=== PATIENT | female | born 1970 | race American Indian/Alaskan Native ===

== ENCOUNTER 2020-05-21 08:23 | Emergency (ER) | payer SELFPAY ==
[2020-05-21 08:31] VITALS: BP 163/112
[2020-05-21 09:33] LABS: Basophils # (Auto) 0.1 K/mm3 (0.0-0.1); Basophils % (Auto) 2.4 % (0.0-1.8); Eosinophils # (Auto) 0.2 K/mm3 (0.0-0.4); Eosinophils % (Auto) 4.1 % (0.0-4.3); Hematocrit 41.2 % (30.3-42.9); Hemoglobin 13.9 gm/dl (10.1-14.3); Lymphocytes # (Auto) 1.6 K/mm3 (1.2-5.4); Mean Corpuscular HGB Conc 34 % (30-34); Mean Corpuscular Volume 88 fl (79-97); Monocytes # (Auto) 0.3 K/mm3 (0.0-0.8); Monocytes % (Auto) 7.6 % (0.0-7.3); Platelet Count 227 K/mm3 (140-440); Red Blood Count 4.69 M/mm3 (3.65-5.03); Red Cell Distribution Width 13.6 % (13.2-15.2)
[2020-05-21 09:45] LABS: Alanine Aminotransferase 17 units/L (7-56); Albumin 4.1 g/dL (3.9-5); BUN/Creatinine Ratio 13; Blood Urea Nitrogen 14 mg/dL (7-17); Calcium 9.2 mg/dL (8.4-10.2); Hemolysis Index 6
[2020-05-21 12:54] LABS: Bilirubin,Urine NEG (Negative); Blood,Urine NEG (Negative); Color,Urine Yellow (Yellow); Mucus,Urine FEW /HPF; Protein,Urine <15 mg/dL mg/dL (Negative); Urobilinogen,Urine < 2.0 mg/dL (<2.0)
--- NOTE | 2020-05-21 14:02 | Emergency Department Report ---
ED Abdominal Pain HPI - General Chief Complaint: Abdominal Pain Stated Complaint: ABD PAIN PUI?: No Time Seen by Provider: 05/21/20 13:09 Source: patient Mode of arrival: Ambulatory Limitations: No Limitations - History of Present Illness Initial Comments: Chief complaint: Abdominal pain, vaginal itching HPI this is a 50-year-old female with history of uterine fibroids who presents with lower periumbilical suprapubic abdominal pain crampy in nature. Mild to moderate in severity. Ibuprofen did not provide any relief. No fever. No vomiting. Patient has had vaginal itching for several days. No vaginal discharge. Patient does not have a PCP. Last menstrual cycle 5 to 6 months ago patient is perimenopausal. MD Complaint: abdominal pain -: Gradual, days(s) (2) Location: periumbilical, suprapubic Severity: mild, moderate Quality: cramping Consistency: intermittent Improves With: nothing Worsens With: nothing Associated Symptoms: other (Vaginal itching) - Related Data Previous Rx's Medication Instructions Recorded Last Taken Type Fluconazole [Diflucan TAB] 1 tab PO QDAY #1 tablet 05/21/20 Unknown Rx HYDROcodone/APAP 5-325 [[place] 1 each PO Q6H PRN #10 tablet 05/21/20 Unknown Rx 5/325] Ibuprofen [Motrin 800 MG tab] 1 tab PO Q8HR PRN #15 tablet 05/21/20 Unknown Rx metroNIDAZOLE [Flagyl TAB] 1 tab PO Q12HR 7 Days #14 tab 05/21/20 Unknown Rx Allergies Allergy/AdvReac Type Severity Reaction Status Date / Time No Known Allergies Allergy Unverified 04/07/18 11:15 ED Review of Systems ROS: Stated complaint: ABD PAIN Other details as noted in HPI Comment: All other systems reviewed and negative Constitutional: denies: fever, malaise Respiratory: denies: cough, shortness of breath Gastrointestinal: abdominal pain. denies: nausea, vomiting Genitourinary: denies: urgency, frequency, hematuria, discharge, abnormal mense s, dyspareunia Musculoskeletal: denies: as per HPI ED Past Medical Hx - Past Medical History Previous Medical History?: No - Surgical History Past Surgical History?: Yes Additional Surgical History: Tubal ligation - Social History Smoking Status: Light Tobacco Smoker Substance Use Type: Alcohol - Medications Home Medications: Home Medications Medication Instructions Recorded Confirmed Last Taken Type Fluconazole [Diflucan TAB] 1 tab PO QDAY #1 tablet 05/21/20 Unknown Rx HYDROcodone/APAP 5-325 [[place] 1 each PO Q6H PRN #10 tablet 05/21/20 Unknown Rx 5/325] Ibuprofen [Motrin 800 MG tab] 1 tab PO Q8HR PRN #15 tablet 05/21/20 Unknown Rx metroNIDAZOLE [Flagyl TAB] 1 tab PO Q12HR 7 Days #14 tab 05/21/20 Unknown Rx ED Physical Exam - General Limitations: No Limitations General appearance: alert, in no apparent distress - Head Head exam: Present: atraumatic, normocephalic - Eye Eye exam: Present: normal appearance - ENT ENT exam: Present: mucous membranes moist - Neck Neck exam: Present: normal inspection - Respiratory Respiratory exam: Present: normal lung sounds bilaterally. Absent: respiratory distress, wheezes, rales, rhonchi - Cardiovascular Cardiovascular Exam: Present: regular rate, normal rhythm, normal heart sounds. Absent: systolic murmur, diastolic murmur, rubs, gallop - GI/Abdominal GI/Abdominal exam: Present: soft, normal bowel sounds. Absent: distended, tenderness, guarding, rebound - Extremities Exam Extremities exam: Present: normal inspection - Back Exam Back exam: Present: normal inspection - Neurological Exam Neurological exam: Present: alert, oriented X3 - Psychiatric Psychiatric exam: Present: normal affect, normal mood - Skin Skin exam: Present: warm, dry, intact, normal color. Absent: rash ED Course Vital Signs 05/21/20 05/21/20 08:29 13:59 Temperature 98.1 F Pulse Rate 88 Respiratory 18 16 Rate Blood Pressure 163/112 [Right] O2 Sat by Pulse 98 Oximetry ED Medical Decision Making - Lab Data Result diagrams: 05/21/20 08:42 05/21/20 08:42 Laboratory Results - last 24 hr 05/21/20 05/21/20 05/21/20 08:42 08:42 11:51 WBC 4.4 L RBC 4.69 Hgb 13.9 Hct 41.2 MCV 88 MCH 30 MCHC 34 RDW 13.6 Plt Count 227 Lymph % (Auto) 37.0 H [place] % (Auto) 7.6 H Eos % (Auto) 4.1 Baso % (Auto) 2.4 H Lymph # (Auto) 1.6 [place] # (Auto) 0.3 Eos # (Auto) 0.2 Baso # (Auto) 0.1 Seg Neutrophils % 48.9 Seg Neutrophils # 2.1 Sodium 142 Potassium 4.0 Chloride 104.5 Carbon Dioxide 29 Anion Gap 13 BUN 14 Creatinine 1.1 Estimated GFR > 60 BUN/Creatinine Ratio 13 Glucose 102 H Calcium 9.2 Total Bilirubin 0.30 AST 15 ALT 17 Alkaline Phosphatase 87 Total Protein 7.5 Albumin 4.1 Albumin/Globulin Ratio 1.2 Urine Color Yellow Urine Turbidity Clear Urine pH 6.0 Ur Specific [place] 1.016 Urine Protein <15 mg/dl Urine Glucose (UA) Neg Urine Ketones Neg Urine Blood Neg Urine Nitrite Neg Urine Bilirubin Neg Urine Urobilinogen < 2.0 Ur Leukocyte Esterase Neg Urine WBC (Auto) 1.0 Urine RBC (Auto) 3.0 U Epithel Cells (Auto) 9.0 Urine Mucus Few - Medical Decision Making I have reviewed labs obtained CBC chemistry urinalysis all within normal limits. I suspect crampy abdominal pain due to uterine fibroids. No tenderness or leukocytosis to indicate infectious inflammatory process such as appendicitis or cholecystitis. Patient appears well. She is comfortable. I have prescribed ibuprofen and [place] for intermittent pain due to uterine fibroids. Also pro vided prescription for vaginitis and fluconazole for vaginitis. Critical care attestation.: If time is entered above; I have spent that time in minutes in the direct care of this critically ill patient, excluding procedure time. ED Disposition Clinical Impression: Uterine fibroid, Acute abdominal pain, Vaginitis Disposition: DC- TO HOME OR SELFCARE Is pt being admited?: No Does the pt Need Aspirin: No Condition: Stable Instructions: Abdominal Pain (ED), Uterine Fibroids (ED) Prescriptions: Fluconazole [Diflucan TAB] 1 tab PO QDAY #1 tablet metroNIDAZOLE [Flagyl TAB] 1 tab PO Q12HR 7 Days #14 tab Ibuprofen [Motrin 800 MG tab] 1 tab PO Q8HR PRN #15 tablet PRN Reason: Pain , Severe (7-10) HYDROcodone/APAP 5-325 [[place] 5/325] 1 each PO Q6H PRN #10 tablet PRN Reason: Pain Referrals: HODA NI MD [Staff Physician] - 3-5 Days
[2020-05-21] MEDS ORDERED: HYDROcodone/ACETAMINOPHEN 5-325 MG TAB PO ONE (14:10)
[2020-05-21] MEDS ORDERED: IBUPROFEN 800 MG TAB PO ONE (14:10)
== END 2020-05-21 14:42 | disposition home or self-care (01) ==
LOC: ED 08:23
DX: D25.9 Leiomyoma of uterus, unspecified (principal); N76.0 Acute vaginitis; F17.200 Nicotine dependence, unspecified, uncomplicated; Z98.51 Tubal ligation status; Z79.899 Other long term (current) drug therapy
CPT/HCPCS: 36415; 80053; 81001; 85025; 99283